=== PATIENT | male | born 1940 | race Caucasian/White ===

== ENCOUNTER 2019-03-09 07:49 | Inpatient (IN) | payer MEDICARE ==
[2019-03-08 09:00] LABS: ALBUMIN 3.5 g/dL (3.4-5.0); ANION GAP 5 mmol/L (5-15); CALCIUM 8.8 mg/dL (8.5-10.1); CHLORIDE 109 mmol/L (98-107)
[2019-03-08 09:03] LABS: ALANINE AMINOTRANSFERASE 26 U/L (12-78); ALKALINE PHOSPHATASE 77 U/L (45-117); BILIRUBIN,TOTAL 0.8 mg/dL (0.2-1.0); CREATININE 1.24 mg/dL (0.7-1.3); TOTAL PROTEIN 7.2 g/dL (6.4-8.2)
[2019-03-08 09:41] LABS: BASOPHILS # (AUTO) 0.04 x10^3/uL (0-0.1); BASOPHILS % (AUTO) 0 % (0-1); EOSINOPHILS # (AUTO) 0.15 x10^3/uL (0-0.4); EOSINOPHILS % (AUTO) 2 % (1-7); LYMPHOCYTES # (AUTO) 1.54 x10^3/uL (1-3.4); LYMPHOCYTES % (AUTO) 17 % (22-44); MD NO; MEAN CORPUSCULAR HEMOGLOBIN 28.6 pg (27.5-34.5); MEAN CORPUSCULAR HGB CONC 32.6 g/dL (33.2-36.2); MEAN CORPUSCULAR VOLUME 87.9 fL (81-97); MEAN PLATELET VOLUME 9.2 fL (7.4-10.4); MONOCYTES # (AUTO) 0.66 x10^3/uL (0.2-0.8); MONOCYTES % (AUTO) 7 % (2-9); NEUTROPHILS % (AUTO) 74 % (42-75); PLATELET COUNT 286 x10^3/uL (130-400); RED BLOOD COUNT 5.11 x10^6/uL (4.38-5.82); RED CELL DISTRIBUTION WIDTH 13.5 % (9.4-14.8)
[~2019-03-09] VITALS: Ht 177.8 cm; Wt 86.0 kg
[~2019-03-09 07:49] MED LIST: ATOR40TA78 PO; CHOL2000 PO; CLOP75TA PO; LEVO125T5 PO; OMEG1CAP23 PO; PRAV10TA2 PO; RED600CA2 PO; VALS40TA2 PO; [UNRECOGNIZED DRUG - CODE] PO
[2019-03-09] MEDS ORDERED: LACTATED RINGERS 1,000 ML IV SCH (15:29)
[2019-03-09 16:04] VITALS: BP 161/94
[2019-03-09] MEDS ORDERED: BUPIVACAINE/EPI 0.5% 1:200K ONE (17:03)
[2019-03-09] MEDS ORDERED: PROTAMINE SULFATE 10 MG/ML, 5ML ONE (17:03)
[2019-03-09] MEDS ORDERED: PAPAVERINE 30 MG/ML, 2ML ONE (17:03)
[2019-03-09] MEDS ORDERED: THROMBIN 5,000 UNIT VIAL TP ONE (17:04)
[2019-03-09] MEDS ORDERED: LIDOCAINE 1%, 20ML ONE (17:04)
[2019-03-09] MEDS ORDERED: HEPARIN 1,000 UNITS/ML, 10ML ONE (17:04)
[2019-03-09] MEDS ORDERED: ALBUTEROL SULFATE 2.5 MG/3 ML NPPB PRN (17:30)
[2019-03-09] MEDS ORDERED: MEPERIDINE/PF 25MG/ML,1ML IVPush PRN (17:30)
[2019-03-09] MEDS ORDERED: PROMETHAZINE 25 MG/ML, 1ML IV PRN (17:30)
[2019-03-09] MEDS ORDERED: HYDROmorphone 2 MG/ML, 1ML IVPush PRN (17:30)
[2019-03-09] MEDS ORDERED: HALOPERIDOL 5 MG/ML IV PRN (17:30)
[2019-03-09] MEDS ORDERED: FENTANYL PF 250 MCG/5ML ONE (17:37)
[2019-03-09] MEDS ORDERED: NITROGLYCERIN 5 MG/ML, 10ML ONE (17:41)
[2019-03-09] MEDS ORDERED: PHENYLEPHRINE 10 MG/ML ONE (17:51)
[2019-03-09] MEDS ORDERED: PROPOFOL 10 MG/ML, 20ML ONE (17:51)
[2019-03-09] MEDS ORDERED: ROCURONIUM 10 MG/ML,10ML ONE (17:51)
[2019-03-09] MEDS ORDERED: CEFAZOLIN 1,000 MG ONE (17:51)
[2019-03-09] MEDS ORDERED: ONDANSETRON 2MG/ML, 2ML ONE (17:51)
[2019-03-09] MEDS ORDERED: EPHEDRINE 50 MG/ML, 1ML ONE (17:51)
[2019-03-09] MEDS ORDERED: DEXAMETHASONE 4 MG/ML, 1ML ONE (17:51)
[2019-03-09] MEDS ORDERED: FENTANYL PF 100 MCG/2ML ONE ×2 (19:19→19:51)
[2019-03-09] MEDS ORDERED: SUGAMMADEX 200 MG/2 ML IVPush ONE (19:30)
[2019-03-09] MEDS ORDERED: OXYcodone 5 MG/5 ML ORAL.SOL UDC ONE ×2 (19:51→21:48)
[2019-03-09] MEDS: LABETALOL 5MG/ML, 20ML IV PRN ×3 (19:51→20:13)
[2019-03-09] MEDS: FENTANYL PF 100 MCG/2ML IV PRN ×3 (19:54→21:42)
[2019-03-09] MEDS: OXYcodone 5 MG/5 ML ORAL.SOL UDC PO PRN ×2 (19:55→21:49)
[2019-03-09] MEDS ORDERED: hydrALAzine 20 MG/ML, 1ML ONE (20:02)
[2019-03-09] MEDS: hydrALAzine 20 MG/ML, 1ML IV PRN ×2 (20:04→20:45)
[2019-03-09 22:48] VITALS: BP 114/70
[2019-03-10 00:19] VITALS: BP 116/73
[2019-03-10] MEDS ORDERED: ACETAMINOPHEN 650 MG SUPP PR PRN (01:00)
[2019-03-10] MEDS ORDERED: CEFAZOLIN PMX 2GM/100ML 100 ML IVPB SCH (01:00)
[2019-03-10] MEDS ORDERED: HYDROcodone/APAP 5/325 TABLET PO PRN (01:00)
[2019-03-10] MEDS ORDERED: ONDANSETRON 2MG/ML, 2ML IV PRN (01:00)
[2019-03-10] MEDS ORDERED: LABETALOL 5MG/ML, 20ML IVPush PRN ×2 (01:00)
[2019-03-10] MEDS ORDERED: hydrALAzine 20 MG/ML, 1ML IVPush PRN (01:00)
[2019-03-10] MEDS ORDERED: morphine SULFATE 10 MG/ML, 1ML IV PRN (01:00)
[2019-03-10] MEDS: LACTATED RINGERS 1,000 ML IV SCH ×2 (02:34→12:00)
[2019-03-10] MEDS ORDERED: ACETAMINOPHEN 325 MG TABLET PO PRN (03:30)
[2019-03-10] MEDS ORDERED: LEVOTHYROXINE 125 MCG TABLET PO SCH (06:00)
[2019-03-10 07:02] VITALS: BP 108/66
[2019-03-10] MEDS ORDERED: CLOPIDOGREL 75 MG TABLET PO SCH (09:00)
[2019-03-10] MEDS ORDERED: SODIUM CHLORIDE FLUSH 10ML SYR IVF SCH (09:00)
[2019-03-10] MEDS ORDERED: CEFAZOLIN 2,000 MG in SODIUM CHLORIDE 0.9% 50 ML IV SCH (09:30)
[2019-03-10] MEDS ORDERED: CEFAZOLIN 2,000 MG in SODIUM CHLORIDE 0.9% 50 ML IV ONE (12:30)
[2019-03-10] MEDS ORDERED: CEFAZOLIN PMX 2GM/50ML 50 ML IVPB ONE (12:30)
[2019-03-10 13:50] VITALS: BP_SYST 100; BP_SYST 97; BP_DIAS 54; BP_DIAS 56
[2019-03-10] MEDS ORDERED: ATORVASTATIN 80 MG TABLET PO SCH (21:00)
[2019-03-10] MEDS ORDERED: VALSARTAN 80 MG TABLET PO SCH (21:00)
== END 2019-03-10 18:29 | disposition home or self-care (01) | DRG 39 ==
LOC: ORIP 15:20 → 4NE 22:18
PROVIDERS: ADMIT Surgery; ATTEND Surgery
PROC: 03UJ0KZ Supplement Left Common Carotid Artery with Nonautologous Tissue Substitute, Open Approach (ICD-10-PCS; 2019-03-09)
PROC: 03CL0ZZ Extirpation of Matter from Left Internal Carotid Artery, Open Approach (ICD-10-PCS; 2019-03-09)
PROC: 03UL0KZ Supplement Left Internal Carotid Artery with Nonautologous Tissue Substitute, Open Approach (ICD-10-PCS; 2019-03-09)
PROC: 03CN0ZZ Extirpation of Matter from Left External Carotid Artery, Open Approach (ICD-10-PCS; 2019-03-09)
PROC: 03CJ0ZZ Extirpation of Matter from Left Common Carotid Artery, Open Approach (ICD-10-PCS; principal; 2019-03-09 17:30)
DX: I65.22 Occlusion and stenosis of left carotid artery (principal); E03.9 Hypothyroidism, unspecified; E78.5 Hyperlipidemia, unspecified; I10 Essential (primary) hypertension; Z86.73 Personal history of transient ischemic attack (TIA), and cerebral infarction without residual deficits
CPT/HCPCS: 36415; 80053; 85025; 86850; 86900; 93005; G0378; J0690; J1100; J1644; J2405; J2704; J2720; J3010; C1768; J0360; J2370; J2440; J7120

== ENCOUNTER 2019-10-10 07:40 | Outpatient (CLI) | payer MEDICARE | END 2019-10-10 23:59 | disposition home or self-care (01) | LOC: CVU 07:40 | PROVIDERS: ATTEND Surgery | DX: I25.10 Atherosclerotic heart disease of native coronary artery without angina pectoris (principal); I65.22 Occlusion and stenosis of left carotid artery | CPT/HCPCS: 93880; 93922 ==

== ENCOUNTER → 2020-07-10 | Outpatient (CLI) | payer MEDICARE | END | disposition home or self-care (01) | LOC: LAB 10:56 | PROVIDERS: ATTEND Family Medicine | DX: E11.9 Type 2 diabetes mellitus without complications (principal); R94.6 Abnormal results of thyroid function studies | CPT/HCPCS: 36415; 83036; 84443 ==